=== PATIENT | female | born 1945 | race Caucasian/White ===

== ENCOUNTER 2017-08-31 10:30 | Inpatient (IN) | payer MEDICARE, OTHER ==
[2017-08-31] MEDS ORDERED: Acetaminophen 650 MG Suppository ONE (10:55)
[2017-08-31 11:20] LABS: #Lymphocytes 0.7 thou/uL (1.20-3.40); #Monocytes 0.3 thou/uL (0.11-0.59); #Neutrophils 5.1 thou/uL (1.40-6.50); %Basophils 0.3 % (0.0-1.0); %Eosinophils 0.1 % (0.0-10.0); %Lymphocytes 11.2 % (21.0-51.0); %Monocytes 4.1 % (0.0-10.0); %Neutrophils 84.4 % (42.0-75.0); Hemoglobin 13.3 g/dL (12.0-16.0); Mean Corpuscular Hemoglobin 32.5 pg (27.0-31.0); Mean Corpuscular Volume 92.8 fl (81.0-99.0); Mean Platelet Volume 5.6 fL (7.4-10.4); Platelet Count 240 thou/uL (130-400); RBC Distribution Width 14.2 % (11.5-14.5); Red Blood Cell (RBC) Count 4.11 mill/uL (4.20-5.40)
[2017-08-31 11:31] LABS: ALT (SGPT) 33 U/L (8-55); AST (SGOT) 29 U/L (5-34); Albumin 3.2 g/dL (3.4-4.8); Alkaline Phosphatase 91 U/L (40-150); Anion Gap 12 mmol/L (10-20); BUN (Urea Nitrogen) 15 mg/dL (9.8-20.1); Bilirubin, Total 0.6 mg/dL (0.2-1.2); CK (CPK) 132 U/L (29-168); Calc. Creatinine Clearance 0 mL/min (70-130); Calcium 8.5 mg/dL (7.8-10.44); Carbon Dioxide 20 mmol/L (23-31); Chloride 92 mmol/L (98-107); Estimated GFR-MDRD Greater than 90; Glucose 147 mg/dL (83-110); Lipase 4 U/L (8-78); Potassium 3.4 mmol/L (3.5-5.1); Protein, Total 5.2 g/dL (6.0-8.3); Sodium 121 mmol/L (136-145)
--- NOTE | 2017-08-31 11:52 | CT ---
CT BRAIN: Date: 08/31/17 PROVIDED CLINICAL HISTORY: Altered mental status. FINDINGS: No comparison examinations are currently available. The lateral ventricular system is dilated. There is ill-defined hypodensity present in the region of the proximal third ventricle measuring about 2.6 cm. This may reflect tumor given the provided clinic al history of brain malignancy status post recent surgery. There is encephalomalacia of much of the i nferior right frontal region with associated cortical and subcortical white matter hypodensity that m ay reflect edema. Areas of cortical/juxtacortical hyperdensity involving the medial right frontal reg ion may reflect laminar necrosis or subarachnoid blood products. Linear density overlying the right f rontal region likely reflects postsurgical change. Postsurgical change involving the right frontal sk ull is seen. No shift of the midline structures. Basilar cisterns appear patent. IMPRESSION: 1. Extensive postoperative changes involving the right frontal region as described above. These are incompletely evaluated in the absence of comparison examinations. Hydrocephalus is noted, which may b e on the basis of tumor obstruction at the level of the third ventricle. Correlation with prior imagi ng is necessary. Further evaluation with brain MRI with and without IV contrast may be useful as clin ically indicated. 2. Cortical/juxtacortical right frontal hyperdensity as described above. Consider follow-up. Findings communicated to Dr. Christensen via telephoned at 1135 hours, 08/31/17. CODE CR. POS: [facility]
[2017-08-31] MEDS ORDERED: Pantoprazole 40 MG VIAL ONE (11:55)
[2017-08-31] MEDS ORDERED: Ondansetron HCl/PF 4 MG/2 ML Vial ONE (11:55)
[2017-08-31] MEDS ORDERED: Dexamethasone 4 mg/ml Vial ONE (11:55)
--- NOTE | 2017-08-31 12:02 | RAD ---
PORTABLE CHEST: Date: 08/31/17 PROVIDED CLINICAL HISTORY: Cough. FINDINGS: Cardiac and mediastinal silhouette is within normal limits. Prominence of pulmonary interstitium is n onspecific. No focal consolidation, pleural fluid, or pneumothorax apparent. IMPRESSION: Nonspecific prominence of pulmonary interstitium. POS: [facility]
[2017-08-31 14:59] LABS: Bilirubin Negative (Negative); Blood, Urine Moderate (Negative); Clarity CLOUDY (Clear); Glucose, Urine (Dipstick) Negative (Negative); Leukocyte Small (Negative); Nitrite Negative (Negative); Protein, Urine (Dipstick) Trace mg/dL (Neg-Trace)
[2017-08-31 15:02] LABS: Bacteria/HPF 4+ HPF (None Seen); Hyaline Casts/LPF 7-10 HYALINE CAST LPF (0-3 Hyaline); Squamous Epithelial None Seen HPF (0-3); WBC/HPF 21-50 HPF (0-3)
[2017-08-31 18:37] VITALS: BMI 26.6
[2017-08-31] MEDS ORDERED: Lorazepam 2 MG/ML VIAL SLOW IVP PRN ×2 (18:59)
[2017-08-31] MEDS ORDERED: Haloperidol Lactate 5 MG/ML VIAL SLOW IVP PRN (18:59)
[2017-08-31] MEDS ORDERED: Morphine 10 MG/0.5 ML ORAL SYRINGE SL PRN (18:59)
[2017-08-31] MEDS ORDERED: Acetaminophen 650 MG Suppository PR PRN (18:59)
[2017-08-31] MEDS ORDERED: Scopolamine 1.5 mg/72 hour Patch TOP PRN ×2 (18:59)
[2017-08-31] MEDS ORDERED: Ondansetron HCl/PF 4 MG/2 ML Vial IVP PRN (18:59)
[2017-08-31] MEDS ORDERED: Hyoscyamine Sulfate SL 0.125 mg Tablet SL PRN (18:59)
[2017-08-31] MEDS ORDERED: diphenhydrAMINE 50 MG/ML VIAL IVP PRN (18:59)
[2017-08-31] MEDS ORDERED: Morphine 2 MG/ML SYRINGE SLOW IVP PRN (19:04)
[2017-09-01] MEDS ORDERED: Scopolamine 1.5 mg/72 hour Patch TOP SCH (04:00)
[2017-09-01] MEDS: Lorazepam 2 MG/ML VIAL SLOW IVP SCH ×2 (04:09→11:33)
[2017-09-01 13:40] VITALS: BP 104/53; TEMP 96.8
--- NOTE | 2017-09-01 21:47 | HP ---
DATE OF ADMISSION: 08/31/2017 HISTORY OF PRESENT ILLNESS: The patient is an elderly white female who was found unresponsive at her home. She has a history of terminal brain cancer, had surgery in late July by Dr. Kishor Martinez at [facility]. About a week ago, the patient was started on chemotherapy pills and steroids. She had not had anything to eat or drink since starting the chemotherapy. She was also placed on Keppra for seizure disorders. She was found by family to be unresponsive with coffee-ground emesis by her side . In the emergency room, the patient was found on CT scan to show a mass which appears to be blockin g the third ventricle due to tumor load. The patient's case was discussed by emergency room doctor w monica the , who is the medical power of claim attorney, and discussed the patient's terminal state and it was decided by the family that the patient would be admitted to hospice due to her acute status. She was admitted to inpatient hospice. She had recent history of seizure disorders and was unable t o take any p.o. medications and needed inpatient medical management of her palliative hospice care. PAST MEDICAL HISTORY: Terminal brain cancer, status post craniotomy about 1 month ago. PAST SURGICAL HISTORY: Include knee surgery. MEDICATIONS: At this time, the patient had been on chemotherapy pills, Keppra for seizure disorder, and oral steroids; although, she was not taking anything at the time of ER evaluation. ALLERGIES: The patient has a history of allergies to SULFA. SOCIAL HISTORY: The patient had a significant decline since the diagnosis of her brain cancer to the point where she was nonverbal for the last few days prior to ER evaluation. PHYSICAL EXAMINATION: GENERAL: Obtunded white female with an NG tube in place with low intermittent suction, unresponsive to verbal or tactile stimuli. HEENT: Pupils were fixed bilaterally, slightly dilated. VITAL SIGNS: Blood pressure was 122/54, pulse was 92, respiratory rate was 12, O2 sat was 90% on saji m air. HEENT: Oropharynx showed coffee-ground at the lips. NECK: Supple. CHEST: Had rhonchi bilaterally. HEART: Regular rate and rhythm. ABDOMEN: Flat, soft. No sign of tenderness to palpation, although the patient was unresponsive. EXTREMITIES: Showed cool extremities x4. 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 The patie nt is unresponsive due to tumor mass affecting the ventricle. She is in a terminal state. Agree wit h the family's plan for hospice. We will admit the patient to inpatient hospice at this time and onc e stable could be transferred to home. We will start scopolamine patch for secretions, morphine as n eeded for pain. We will start routine lorazepam 1 mg IV q.6 hours for prevention of seizures and sta tus epilepticus. DISPOSITION: The patient is terminal. Life expectancy is less than 1 week. I discussed the case wi th the patient's , who is medical power of claim attorney. He understands the patient's terminal st atus and agreed to hospice.
--- NOTE | 2017-09-06 12:37 | EKG ---
Test Reason : Blood Pressure : / mmHG Vent. Rate : 092 BPM Atrial Rate : 092 BPM P-R Int : 138 ms QRS Dur : 088 ms QT Int : 394 ms P-R-T Axes : 083 083 075 degrees QTc Int : 487 ms Normal sinus rhythm Biatrial enlargement Nonspecific ST abnormality Abnormal ECG Confirmed by ONESIMO KENNY, JOHNNIE ([id number]), non linear editor NICK SAM ([id number]) on 09/06/2017 12:36:06 PM Referred By: Confirmed By:JOHNNIE ECHOLS MD
== END 2017-09-01 14:30 | disposition hospice, home (50) | DRG 54 ==
LOC: ERS 10:30 → ONC 18:28
PROVIDERS: ADMIT Family Medicine; ATTEND Family Medicine
DX: C71.9 Malignant neoplasm of brain, unspecified (principal); G93.5 Compression of brain; K92.2 Gastrointestinal hemorrhage, unspecified; N39.0 Urinary tract infection, site not specified; G40.909 Epilepsy, unspecified, not intractable, without status epilepticus; Z66 Do not resuscitate
CPT/HCPCS: 36415; 51701; 70450; 71045; 80053; 81003; 81015; 82140; 82550; 83690; 84146; 85025; 87804; 93005; 96361; 96374; 96375; A4353; C9113; J0696; J1100; J2060; J2405